=== PATIENT | female | born 1950 | race Caucasian/White ===

== ENCOUNTER 2020-03-07 23:52 | Inpatient (IN) ==
[2020-03-08] MEDS ORDERED: Ondansetron 4 MG/2 ML VIAL IVP ONE (00:06)
[2020-03-08] MEDS ORDERED: *HR* FentaNYL (PF) 100 MCG/2 ML VIAL IVP ONE (00:06)
[2020-03-08] MEDS ORDERED: Ipratropium/Albuterol Neb 3 ML IH ONE (00:10)
[2020-03-08] MEDS ORDERED: MetroNIDAZOLE 500 MG/100 ML 500 MG/100 ML BAG IVPB ONE (00:52)
[2020-03-08 00:57] LABS: Bilirubin,Urine Negative (Negative); Blood,Urine Negative (Negative); Clarity,Urine Clear (Clear); Color,Urine Light-Yellow (Yellow); Glucose,Urine (UA) Normal (Normal); Ketones,Urine Negative (Negative); Leukocyte Esterase,Urine Small (Negative); Mucus,Urine Few per lpf (None-Few); Nitrite,Urine Negative (Negative); PH,Urine 6.5 pH Units (5.0-8.0); Protein,Urine Negative (Neg-Trace); RBC,Urine 0-3 per hpf (0-3); Specific Gravity,Urine 1.009 (1.010-1.025); Squamous Epithelial Cell,Urine Few per hpf (None-Few); Urobilinogen,Urine Normal (Normal); WBC,Urine 0-3 per hpf (0-3)
[2020-03-08 00:58] LABS: Basophils # 0.1 K/mcL (0.0-0.2); Basophils % 0.4 %; Eosinophils # 0.2 K/mcL (0.0-0.6); Eosinophils % 1.1 %; Hematocrit 44.3 % (35.3-44.9); Hemoglobin 13.9 g/dL (11.5-15.4); Immature Granulocytes % 0.6 % (0-4); Lymphocytes # 2.9 K/mcL (0.6-4.6); Lymphocytes % 19.1 %; Mean Corpuscular HGB Conc 31.4 g/dL (31.6-35.5); Mean Corpuscular Hemoglobin 29.8 pg (28.0-33.3); Mean Corpuscular Volume 94.9 fL (83.0-100.0); Mean Platelet Volume 10.7 fL (9.4-12.4); Monocytes # 1.7 K/mcL (0.0-1.3); Monocytes % 10.9 %; Neutrophils # 10.3 K/mcL (1.6-8.9); Platelet Count 246 K/mcL (140-400); Red Blood Count 4.67 M/mcL (3.82-4.97); Segmented Neutrophils % 67.9 %; White Blood Count 15.2 K/mcL (4.3-11.1)
[2020-03-08 00:59] LABS: Prothrombin Time 11.9 Seconds (9.4-12.1)
[2020-03-08 01:16] LABS: Alanine Aminotransferase 9 Units/L (7-52); Albumin 3.6 g/dL (3.5-5.7); Albumin/Globulin Ratio 1.3 (1.1-2.2); Alkaline Phosphatase 68 Units/L (34-104); Amylase 17 Units/L (29-103); Aspartate Amino Transferase 10 Units/L (13-39); BUN/Creatinine Ratio 13 (6-26); Bilirubin,Direct 0.1 mg/dL (0.0-0.2); Bilirubin,Indirect 0.3 mg/dL (0.0-1.0); Bilirubin,Total 0.4 mg/dL (0.3-1.0); Blood Urea Nitrogen 16 mg/dL (8-23); Calcium 8.8 mg/dL (8.6-10.3); Carbon Dioxide 18 mEq/L (23-29); Chloride 106 mEq/L (98-107); Globulin 2.7 g/dL (2.4-3.5); Glucose 110 mg/dL (70-105); Lipase 12 Units/L (11-82); Osmolality,Calculated 282 (280-300); Potassium 3.5 mEq/L (3.5-5.1); Sodium 135 mEq/L (136-145); Total Protein 6.3 g/dL (6.4-8.9); eGFR For African Americans 53 (> 60); eGFR For Non-African Americans 43 (> 60)
[2020-03-08 01:17] LABS: Troponin I < 0.03 ng/mL (< 0.04)
[2020-03-08] MEDS ORDERED: Naloxone 0.4 MG/ML INJ IVP PRN (01:51)
[2020-03-08] MEDS ORDERED: *HR* LORazepam 0.5 MG TABLET PO PRN (01:52)
[2020-03-08] MEDS ORDERED: Ipratropium/Albuterol Neb 3 ML IH PRN (02:49)
[2020-03-08] MEDS: Ringers Solution, Lactated 1,000 ML IVC SCH ×2 (02:50→18:08)
[2020-03-08] MEDS: *HR* Heparin 5,000 UNIT/ML VIAL SQ SCH ×3 (06:23→19:59)
[2020-03-08] MEDS: Ranolazine 500 MG TAB.ER.12H PO SCH ×2 (10:04→19:59)
[2020-03-08] MEDS: Topiramate 100 MG TABLET PO SCH ×2 (10:04→19:58)
[2020-03-08] MEDS: carvediloL 6.25 MG TABLET PO SCH ×2 (10:04→17:58)
[2020-03-08] MEDS: Isosorbide MONOnitrate (24 HR) 30 MG TAB.ER.24H PO SCH (10:05)
[2020-03-08] MEDS: MetroNIDAZOLE 500 MG/100 ML 500 MG/100 ML BAG IVPB SCH ×2 (10:12→18:00)
[2020-03-08] MEDS: ZETIA 10MG PO SCH (10:14)
[2020-03-08] MEDS: Simethicone 80 MG TAB.CHEW PO SCH ×3 (11:35→19:59)
[2020-03-08] MEDS: Ondansetron 4 MG/2 ML VIAL IVP PRN (23:06)
[2020-03-09] MEDS: MetroNIDAZOLE 500 MG/100 ML 500 MG/100 ML BAG IVPB SCH ×4 (00:41→23:03)
[2020-03-09] MEDS: *HR* Heparin 5,000 UNIT/ML VIAL SQ SCH ×3 (05:12→20:42)
[2020-03-09 06:56] LABS: Basophils % 0.4 %; Eosinophils # 0.2 K/mcL (0.0-0.6); Eosinophils % 1.8 %; Hematocrit 41.3 % (35.3-44.9); Hemoglobin 12.8 g/dL (11.5-15.4); Immature Granulocytes % 0.7 % (0-4); Lymphocytes % 20.1 %; Mean Corpuscular Hemoglobin 29.8 pg (28.0-33.3); Mean Platelet Volume 10.7 fL (9.4-12.4); Monocytes # 1.1 K/mcL (0.0-1.3); Monocytes % 10.6 %; Neutrophils # 6.8 K/mcL (1.6-8.9); Platelet Count 242 K/mcL (140-400); Segmented Neutrophils % 66.4 %; White Blood Count 10.2 K/mcL (4.3-11.1)
[2020-03-09 07:26] LABS: Calcium 8.3 mg/dL (8.6-10.3); Magnesium 1.8 mg/dL (1.6-2.6); Potassium 3.7 mEq/L (3.5-5.1)
[2020-03-09] MEDS: Isosorbide MONOnitrate (24 HR) 30 MG TAB.ER.24H PO SCH (08:43)
[2020-03-09] MEDS: carvediloL 6.25 MG TABLET PO SCH ×2 (09:36→16:26)
[2020-03-09] MEDS: Topiramate 100 MG TABLET PO SCH ×2 (09:42→20:42)
[2020-03-09] MEDS: Spironolactone 25 MG TABLET PO SCH (09:42)
[2020-03-09] MEDS: Ranolazine 500 MG TAB.ER.12H PO SCH ×2 (09:42→20:42)
[2020-03-09] MEDS: Simethicone 80 MG TAB.CHEW PO SCH ×4 (09:42→20:44)
[2020-03-09] MEDS: ZETIA 10MG PO SCH (09:57)
[2020-03-09] MEDS ORDERED: *HR* HYDROcodone/Acet 5/325 mg TABLET PO ONE (11:45)
[2020-03-09 13:34] LABS: Bacteria,Urine Few per hpf (None-Few); Bilirubin,Urine Negative (Negative); Blood,Urine Negative (Negative); Clarity,Urine Clear (Clear); Color,Urine Light-Orange (Yellow); Glucose,Urine (UA) Normal (Normal); Ketones,Urine Negative (Negative); Leukocyte Esterase,Urine Large (Negative); Mucus,Urine Few per lpf (None-Few); Nitrite,Urine Negative (Negative); PH,Urine 6.5 pH Units (5.0-8.0); Protein,Urine 30 mg/dL (Neg-Trace); Specific Gravity,Urine 1.014 (1.010-1.025); Squamous Epithelial Cell,Urine Moderate per hpf (None-Few); Urobilinogen,Urine Normal (Normal); WBC,Urine 50-100 per hpf (0-3)
[2020-03-09] MEDS: Ringers Solution, Lactated 1,000 ML IVC SCH (13:51)
[2020-03-09] MEDS: *HR* HYDROcodone/Acet 5/325 mg TABLET PO PRN (20:42)
[2020-03-10] MEDS: *HR* Heparin 5,000 UNIT/ML VIAL SQ SCH (04:59)
[2020-03-10 06:24] LABS: Basophils % 0.4 %; Eosinophils # 0.2 K/mcL (0.0-0.6); Eosinophils % 3.3 %; Hematocrit 38.3 % (35.3-44.9); Immature Granulocytes % 0.7 % (0-4); Lymphocytes # 1.3 K/mcL (0.6-4.6); Lymphocytes % 18.3 %; Mean Corpuscular HGB Conc 31.3 g/dL (31.6-35.5); Mean Corpuscular Hemoglobin 30.4 pg (28.0-33.3); Mean Platelet Volume 10.9 fL (9.4-12.4); Monocytes % 13.8 %; Neutrophils # 4.6 K/mcL (1.6-8.9); Platelet Count 203 K/mcL (140-400); Red Blood Count 3.95 M/mcL (3.82-4.97); Red Cell Distribution Width 12.9 % (11.5-14.5); Segmented Neutrophils % 63.5 %; White Blood Count 7.3 K/mcL (4.3-11.1)
[2020-03-10 06:41] VITALS: BP 117/67
[2020-03-10 06:45] LABS: Calcium 8.1 mg/dL (8.6-10.3); Potassium 3.6 mEq/L (3.5-5.1)
[2020-03-10] MEDS: Ranolazine 500 MG TAB.ER.12H PO SCH (09:03)
[2020-03-10] MEDS: Ondansetron 4 MG/2 ML VIAL IVP PRN (09:03)
[2020-03-10] MEDS: carvediloL 6.25 MG TABLET PO SCH (09:03)
[2020-03-10] MEDS: *HR* HYDROcodone/Acet 5/325 mg TABLET PO PRN (09:04)
[2020-03-10] MEDS: Isosorbide MONOnitrate (24 HR) 30 MG TAB.ER.24H PO SCH (09:04)
[2020-03-10] MEDS: Spironolactone 25 MG TABLET PO SCH (09:04)
[2020-03-10] MEDS: Topiramate 100 MG TABLET PO SCH (09:04)
[2020-03-10] MEDS: Simethicone 80 MG TAB.CHEW PO SCH (09:04)
[2020-03-10] MEDS: MetroNIDAZOLE 500 MG/100 ML 500 MG/100 ML BAG IVPB SCH (09:04)
[2020-03-10] MEDS: Ringers Solution, Lactated 1,000 ML IVC SCH (09:05)
[2020-03-10] MEDS: ZETIA 10MG PO SCH (09:15)
== END 2020-03-10 10:55 | disposition home or self-care (01) | DRG 392 ==
LOC: 3BNU 23:52 → EMEROOARM 23:52 → SUATTDRO 03-08 02:00 → 3BNU 03-08 02:20 → SUATTDRO 03-09 15:08
PROVIDERS: ADMIT Internal Medicine; ATTEND Internal Medicine